=== PATIENT | female | born 1985 | race Caucasian/White ===

== ENCOUNTER 2017-05-07 11:25 | Observation (INO) | payer SELFPAY ==
[2017-05-07] MEDS ORDERED: CHOL20007 PO (12:16)
[2017-05-07] MEDS ORDERED: PREN-96 PO (12:16)
[2017-05-07] MEDS ORDERED: LABE100T PO (12:16)
== END 2017-05-07 13:40 | disposition home or self-care (01) | DRG 781 ==
LOC: LDRP 11:25
PROVIDERS: ADMIT Obstetrics & Gynecology; ATTEND Obstetrics & Gynecology
DX: O26.893 Other specified pregnancy related conditions, third trimester (principal); R10.2 Pelvic and perineal pain; Z3A.33 33 weeks gestation of pregnancy
CPT/HCPCS: 59025; 76815; 81002; G0378